=== PATIENT | male | born 1965 | race Hispanic/Latino ===

== ENCOUNTER 2017-03-23 09:18 | Emergency (ER) | payer MEDICAID, OTHER ==
[2017-03-23 09:38] VITALS: BP 128/101; PULSE 68; TEMP 96.6; O2SAT 97
[2017-03-23 09:39] VITALS: RESP 18
--- NOTE | 2017-03-23 09:48 | ED PDOC ---
Syncope/Near Syncope/Dizziness Time Seen by Provider: 03/23/17 09:24 Chief Complaint (Nursing): Syncope History Per: Patient Onset/Duration Of Symptoms: Hrs Current Symptoms Are (Timing): Gone Now Activity At Onset Of Symptoms: Standing Associated Symptoms Preceding Syncopal Episode: No Predromal Symptoms (Sudden Onset) Seizure Or Post-ictal Symptoms: None Fall Associated With With Symptoms: Yes Severity: Mild Pain Scale Rating Of: 0 Additional Complaint(s): Syncopal episode this AM while smoking. Denies chest pain, palpitations, dizzines. Unkown duration of LOC. No seizure witnessed. Hit head on ground from fall. Past Medical History Vital Signs: Last Vital Signs Temp 96.6 F L 03/23/17 09:37 Pulse 68 03/23/17 09:37 Resp 18 03/23/17 09:36 BP 128/101 H 03/23/17 09:37 Pulse Ox 97 03/23/17 09:37 - Medical History PMH: Denies: Chronic Kidney Disease Other PMH: Syncope 3 months ago w/u neg - Family History Family History: States: Unknown Family Hx - Immunization History Hx Tetanus Toxoid Vaccination: (pt is unsure of last booster) - Home Medications Home Medications: Ambulatory Orders Medication Instructions Recorded No Known Home Med 07/02/16 - Allergies Allergies/Adverse Reactions: Allergies Allergy/AdvReac Type Severity Reaction Status Date / Time No Known Allergies Allergy Verified 07/02/16 12:46 Review of Systems ROS Statement: Except As Marked, All Systems Reviewed And Found Negative Neurological: Positive for: Other (syncope) Physical Exam - Reviewed Nursing Documentation Reviewed: Yes Vital Signs Reviewed: Yes - Physical Exam Appears: Positive for: Well, Non-toxic, No Acute Distress Head Exam: Positive for: NORMOCEPHALIC. Negative for: NORMAL INSPECTION (Soft tissue swelling left frontal area. No palp fx) Skin: Positive for: Normal Color, Warm, DRY Eye Exam: Positive for: EOMI, Normal appearance, PERRL ENT: Positive for: Normal ENT Inspection Neck: Positive for: Normal, Painless ROM Cardiovascular/Chest: Positive for: Regular Rate, Rhythm Respiratory: Positive for: CNT, Normal Breath Sounds Gastrointestinal/Abdominal: Positive for: Normal Exam, Bowel Sounds, Soft Back: Positive for: Normal Inspection Extremity: Positive for: Normal ROM Neurologic/Psych: Positive for: Alert, Oriented - Laboratory Results Result Diagrams: 03/23/17 10:00 03/23/17 10:00 - ECG O2 Sat by Pulse Oximetry: 97 Medical Decision Making Medical Decision Making: Wishes to go home and f/u outpt W/u from 06/2016 reviewed Smoking cessation discussed with pt. Disposition - Clinical Impression Clinical Impression: Vaso vagal episode, Syncope - Patient ED Disposition Is Patient to be Admitted: No Counseled Patient/Family Regarding: Studies Performed, Diagnosis, Need For Followup, Rx Given - Disposition Referrals: [facility] [Outside] Disposition: Routine/Home Disposition Time: 10:35 Condition: FAIR Instructions: Syncope (ED) Forms: [facility] (East Timorese)
[2017-03-23 10:09] LABS: BASO # 0.1 K/uL (0.0-0.2); BASO % 0.6 % (0.0-2.0); EOS # 0.2 K/uL (0.0-0.7); HEMOGLOBIN 15.5 g/dL (12.0-18.0); LYMPH # 2.1 K/uL (1.0-4.3); LYMPH % 21.4 % (20.0-40.0); MEAN CELL VOLUME 90.7 fl (80.0-94.0); MEAN CORPUSCULAR HGB CONC 34.2 g/dL (33.0-37.0); MEAN PLATELET VOLUME 8.4 fl (7.2-11.7); MONO # 0.9 K/uL (0.0-0.8); MONO % 9.4 % (0.0-10.0); NEUT # 6.5 K/uL (1.8-7.0); NEUT % 66.6 % (50.0-75.0); RBC 5.01 Mil/uL (4.40-5.90); RED CELL DISTRIBUTION WIDTH 12.5 % (11.5-14.5); WHITE BLOOD COUNT 9.7 K/uL (4.8-10.8)
[2017-03-23 10:18] LABS: ALB/GLOB RATIO 1.5 (1.0-2.1); ALBUMIN 4.3 g/dL (3.5-5.0); ALT/SGPT 76 U/L (21-72); AST/SGOT 35 U/L (17-59); BLOOD UREA NITROGEN 15 mg/dl (9-20); CALCIUM 9.3 mg/dL (8.4-10.2); GFR AFRICAN-AMERICAN > 60; GFR NON-AFRICAN AMERICAN > 60
--- NOTE | 2017-03-23 10:40 | CT ---
PROCEDURE: CT HEAD WITHOUT CONTRAST. HISTORY: r/o bleed COMPARISON: Comparison is made to the previous study dated 07/02/2016 TECHNIQUE: Axial computed tomography images were obtained through the head/brain without intravenous contrast. Radiation dose: Total exam DLP = 992.4 mGy-cm. This CT exam was performed using one or more of the following dose reduction techniques: Automated exposure control, adjustment of the mA and/or kV according to patient size, and/or use of iterative reconstruction technique. FINDINGS: HEMORRHAGE: No intracranial hemorrhage. BRAIN: No mass effect or edema. Mild atrophy is noted. VENTRICLES: Unremarkable. No hydrocephalus. CALVARIUM: Unremarkable. PARANASAL SINUSES: Unremarkable as visualized. No significant inflammatory changes. MASTOID AIR CELLS: Unremarkable as visualized. No inflammatory changes. OTHER FINDINGS: Soft tissue swelling seen at the left frontal scalp. IMPRESSION: No evidence of acute intracranial hemorrhage. Left frontal scalp soft tissue swelling. Mild atrophy.
[2017-03-23] MEDS ORDERED: cefTRIAXone (Rocephin) 250 mg Inj IM ONE (10:48)
[2017-03-23] MEDS ORDERED: cefTRIAXone (Rocephin) 250 mg Inj ONE (11:04)
--- NOTE | 2017-03-24 08:09 | CARD ---
APPROVED REPORT EKG Measurement Heart [id number] <Conclusion> Normal sinus rhythm Normal ECG
== END 2017-03-23 11:30 | disposition home or self-care (01) ==
LOC: H.ER 09:18
DX: R55 Syncope and collapse (principal)

== ENCOUNTER 2018-01-01 15:18 | Emergency (ER) | payer OTHER ==
[2018-01-01 15:18] VITALS: BMI 28.1
[2018-01-01 15:53] VITALS: BP 126/83; PULSE 90; RESP 20; TEMP 98.9; O2SAT 98
--- NOTE | 2018-01-01 16:58 | ED PDOC ---
HPI: General Adult Time Seen by Provider: 01/01/18 16:13 Chief Complaint (Nursing): ENT Problem Chief Complaint (Provider): Ear pain History Per: Patient History/Exam Limitations: no limitations Onset/Duration Of Symptoms: Hrs (this morning) Current Symptoms Are (Timing): Still Present Additional Complaint(s): 52 year old male, with no past medical history of ear infections, presented to ED with complaints of left ear ache since this morning. Denied headache, fever , head injury, and recent swimming. Patient reports he has not taken medications for pain. PCP: none provided Past Medical History Reviewed: Historical Data, Nursing Documentation, Vital Signs Vital Signs: Last Vital Signs Temp 98.9 F 01/01/18 15:51 Pulse 90 01/01/18 15:51 Resp 20 01/01/18 15:51 BP 126/83 01/01/18 15:51 Pulse Ox 98 01/01/18 17:12 - Medical History PMH: No Chronic Diseases Denies: Chronic Kidney Disease - Surgical History Surgical History: No Surg Hx - Family History Family History: States: Unknown Family Hx - Social History Current smoker - smoking cessation education provided: Yes (>10 cigarettes daily ) Alcohol: None Drugs: Denies - Immunization History Hx Tetanus Toxoid Vaccination: (pt is unsure of last booster) - Home Medications Home Medications: Ambulatory Orders Medication Instructions Recorded Cyclobenzaprine [Cyclobenzaprine 10 mg PO TID PRN #15 tab 06/20/17 HCl] Amoxicillin/Clavulanate [Augmentin 1 tab PO BID #20 tab 01/01/18 875 MG-125 MG] Naproxen [Naprosyn] 500 mg PO BID PRN #14 tab 01/01/18 - Allergies Allergies/Adverse Reactions: Allergies Allergy/AdvReac Type Severity Reaction Status Date / Time No Known Allergies Allergy Verified 01/01/18 15:53 Review of Systems ROS Statement: Except As Marked, All Systems Reviewed And Found Negative Constitutional: Negative for: Fever ENT: Positive for: Ear Pain Musculoskeletal: Negative for: Other (head injury) Neurological: Negative for: Headache Physical Exam - Reviewed Nursing Documentation Reviewed: Yes Vital Signs Reviewed: Yes - Physical Exam Appears: Positive for: Non-toxic, No Acute Distress Head Exam: Positive for: ATRAUMATIC, NORMAL INSPECTION, NORMOCEPHALIC Skin: Positive for: Normal Color, Warm, Dry Eye Exam: Positive for: Normal appearance ENT: Positive for: TM Is/Are (Right TM nonerythematous and non bulgin; Left TM erythematous and bulging). Negative for: Pharyngeal Erythema, Other (tonsilar erythema and mastoid tenderness) Neck: Positive for: Normal Cardiovascular/Chest: Positive for: Regular Rate, Rhythm Respiratory: Positive for: Normal Breath Sounds Extremity: Positive for: Normal ROM Neurologic/Psych: Positive for: Oriented. Negative for: Motor/Sensory Deficits - ECG O2 Sat by Pulse Oximetry: 98 (RA) Pulse Ox Interpretation: Normal Medical Decision Making Medical Decision Making: Initial Impression: otitis media Initial plan: 16:40 Upon provider reevaluation patient is feeling better, is medically stable, and requires no further treatment in the ED at this time. Counseling was provided and all questions were answered regarding diagnosis. There is agreement to discharge plan. Return if symptoms persist or worsen. Scribe Attestation: Documented by Jose Cerrato acting as a scribe for Abdi Welch Provider Scribe Attestation: All medical record entries made by the Scribe were at my direction and personally dictated by me. I have reviewed the chart and agree that the record accurately reflects my personal performance of the history, physical exam, medical decision making, and the department course for this patient. I have also personally directed, reviewed, and agree with the discharge instructions and disposition. Disposition - Clinical Impression Clinical Impression: Otitis media - Disposition Referrals: [facility] [Outside] [facility] [Outside] Disposition: Routine/Home Disposition Time: 16:40 Condition: STABLE Additional Instructions: Follow up with your primary care doctor for further evaluation Return to ED immediately if symptoms worsen Prescriptions: Amoxicillin/Clavulanate [Augmentin 875 MG-125 MG] 1 tab PO BID #20 tab Naproxen [Naprosyn] 500 mg PO BID PRN #14 tab PRN Reason: Pain Forms: [facility] (Lao) Print Language: CHINESE
== END 2018-01-01 16:45 | disposition home or self-care (01) ==
LOC: H.ER 15:18
DX: H66.92 Otitis media, unspecified, left ear (principal)

== ENCOUNTER 2018-01-12 08:05 | Emergency (ER) | payer MEDICAID, OTHER ==
[2018-01-12 08:09] VITALS: BP 113/72; PULSE 92; TEMP 97; O2SAT 96
[2018-01-12 08:10] VITALS: BMI 27.4
--- NOTE | 2018-01-12 09:25 | ED PDOC ---
HPI: General Adult Time Seen by Provider: 01/12/18 08:20 Chief Complaint (Nursing): ENT Problem Chief Complaint (Provider): Left ear popping History Per: Patient History/Exam Limitations: no limitations Onset/Duration Of Symptoms: Hrs (x5) Current Symptoms Are (Timing): Still Present Additional Complaint(s): 52 year old male presented to the ED complaining of left ear popping since 05: 00 today. Patient was presented to the ED on 01/01 for left otitis media and was given augmentin po. Patient was taking medications and felt fine until this morning. Denies discharge but reports crackling sounds. Denies fever, vomiting, and pain. PCP: none provided Past Medical History Reviewed: Historical Data, Nursing Documentation, Vital Signs Vital Signs: Last Vital Signs Temp 97 F L 01/12/18 08:09 Pulse 92 H 01/12/18 08:09 Resp BP 113/72 01/12/18 08:09 Pulse Ox 96 01/12/18 09:30 - Medical History PMH: No Chronic Diseases Denies: Chronic Kidney Disease - Surgical History Surgical History: No Surg Hx - Family History Family History: States: Unknown Family Hx - Social History Current smoker - smoking cessation education provided: Yes (1 pack every few days) Alcohol: None Drugs: Denies - Immunization History Hx Tetanus Toxoid Vaccination: (pt is unsure of last booster) - Home Medications Home Medications: Ambulatory Orders Medication Instructions Recorded Cyclobenzaprine [Cyclobenzaprine 10 mg PO TID PRN #15 tab 06/20/17 HCl] Amoxicillin/Clavulanate [Augmentin 1 tab PO BID #20 tab 01/01/18 875 MG-125 MG] Naproxen [Naprosyn] 500 mg PO BID PRN #14 tab 01/01/18 - Allergies Allergies/Adverse Reactions: Allergies Allergy/AdvReac Type Severity Reaction Status Date / Time No Known Allergies Allergy Verified 01/12/18 08:15 Review of Systems ROS Statement: Except As Marked, All Systems Reviewed And Found Negative Constitutional: Negative for: Fever ENT: Positive for: Other (ear popping). Negative for: Ear Pain, Ear Discharge Gastrointestinal: Negative for: Nausea, Vomiting Physical Exam - Reviewed Nursing Documentation Reviewed: Yes Vital Signs Reviewed: Yes - Physical Exam Appears: Positive for: Non-toxic, No Acute Distress Head Exam: Positive for: ATRAUMATIC, NORMAL INSPECTION, NORMOCEPHALIC Skin: Positive for: Normal Color, Warm, Dry Eye Exam: Positive for: Normal appearance ENT: Positive for: TM Is/Are (dull, small amount of fluid in the left TM), Other (.). Negative for: Pharyngeal Erythema, Tonsillar Swelling Neck: Positive for: Normal, Painless ROM Cardiovascular/Chest: Positive for: Regular Rate, Rhythm. Negative for: Murmur Respiratory: Positive for: Normal Breath Sounds. Negative for: Wheezing, Respiratory Distress Gastrointestinal/Abdominal: Positive for: Normal Exam, Soft. Negative for: Tenderness Back: Positive for: Normal Inspection. Negative for: L CVA Tenderness, R CVA Tenderness Extremity: Positive for: Normal ROM Neurologic/Psych: Positive for: Alert, Oriented. Negative for: Motor/Sensory Deficits - ECG O2 Sat by Pulse Oximetry: 96 (RA) Pulse Ox Interpretation: Normal Medical Decision Making Medical Decision Making: Initial impression: Otitis media - w residual fluid Initial plan: Patient advised to finish his augmentin course and to follow up with ENT specialist as outpatient. Patient is stable for discharge. Scribe Attestation: Documented by Jose Cerrato acting as a scribe for Cam Ennis MD. Provider Scribe Attestation: All medical record entries made by the Scribe were at my direction and personally dictated by me. I have reviewed the chart and agree that the record accurately reflects my personal performance of the history, physical exam, medical decision making, and the department course for this patient. I have also personally directed, reviewed, and agree with the discharge instructions and disposition. Disposition - Clinical Impression Clinical Impression: Left ear pain - Patient ED Disposition Is Patient to be Admitted: No Counseled Patient/Family Regarding: Studies Performed, Diagnosis, Need For Followup - Disposition Referrals: [facility] [Outside] [facility] [Outside] Ron Hanks MD [Staff Provider] - Disposition: Routine/Home Disposition Time: 09:00 Condition: IMPROVED Additional Instructions: follow up with your doctor/ENT specialist for further management continue antibiotics return to the ED with any worsening or concerning symptoms Instructions: Eustachian Tube Problems (DC) Forms: [facility] (Gambian)
== END 2018-01-12 09:50 | disposition home or self-care (01) ==
LOC: H.ER 08:05
DX: H66.92 Otitis media, unspecified, left ear (principal)